=== PATIENT | male | born 1990 | race African-American/Black ===

== ENCOUNTER 2016-06-21 10:52 | Emergency (ER) | payer OTHER ==
[~2016-06-21] VITALS: Ht 188 cm; Wt 95.8 kg
[~2016-06-21 10:52] MED LIST: PEN-VEE K,VEET500 MG PO; TRAMADOL HCL50 MG PO
[2016-06-21 11:04] VITALS: BP 113/69
== END 2016-06-21 14:07 | disposition left against medical advice (07) ==
LOC: EME 10:52
DX: K08.89 Other specified disorders of teeth and supporting structures (principal); Z53.21 Procedure and treatment not carried out due to patient leaving prior to being seen by health care provider; F17.200 Nicotine dependence, unspecified, uncomplicated

== ENCOUNTER 2016-12-22 00:46 | Emergency (ER) | payer OTHER ==
[~2016-12-22] VITALS: Ht 185.4 cm; Wt 97.6 kg
[2016-12-22] MEDS ORDERED: PEN-VEE K,VEET500 MG PO (01:34)
[2016-12-22] MEDS ORDERED: ULTRAM50 MG PO (01:34)
[2016-12-22 01:41] VITALS: BP 131/82
== END 2016-12-22 01:41 | disposition home or self-care (01) ==
LOC: EME 00:46
PROC: 3E0T3BZ Introduction of Anesthetic Agent into Peripheral Nerves and Plexi, Percutaneous Approach (ICD-10-PCS; principal; 2016-12-22)
DX: K08.89 Other specified disorders of teeth and supporting structures (principal); F17.200 Nicotine dependence, unspecified, uncomplicated
CPT/HCPCS: 99281; 99283

== ENCOUNTER 2017-10-22 08:00 | Emergency (ER) | payer OTHER ==
[~2017-10-22] VITALS: Ht 188 cm; Wt 107.9 kg
[~2017-10-22 08:00] MED LIST changes: +ULTRAM50 MG PO
[2017-10-22 09:18] LABS: BASOPHIL (%) 0.3 % (0-1); EOSINOPHIL (%) 2.6 % (0-5); EOSINOPHIL COUNT 0.2 K/uL (0-0.3); HEMATOCRIT 45.6 % (38.0-50.0); HEMOGLOBIN 14.5 G/DL (12.5-16.6); IMMATURE GRANULOCYTE (%) 0.1 % (0.0-0.7); LYMPHOCYTE (%) 31.3 % (15-42); LYMPHOCYTE COUNT 2.4 K/uL (1.0-2.8); MCH 23.3 PG (29.0-34.0); MCHC 31.8 G/DL (30.0-36.0); MCV 73.2 FL (86-99); MONOCYTE (%) 8.1 % (3-12); MONOCYTE COUNT 0.6 K/uL (0-0.8); NEUTROPHIL (%) 57.6 % (45-76); NEUTROPHIL COUNT 4.5 K/uL (1.8-6.4); PLATELET COUNT 263 K/uL (156-360); RBC DIS.WIDTH-CV 14.3 % (11.8-14.6); RBC DIS.WIDTH-SD 37.2 % (39-53); RED BLOOD COUNT 6.23 M/uL (4.00-5.50); WHITE BLOOD COUNT 7.8 K/uL (4.1-10.2)
[2017-10-22 09:26] LABS: CHLORIDE 103 mEq/L (99-109); SODIUM 139 mEq/L (136-147)
[2017-10-22 09:28] LABS: GLUCOSE 100 mg/dL (70-99)
[2017-10-22 09:30] LABS: TROP-I INTERPRETATION NEGATIVE; TROPONIN-I 0.01 ng/mL (0.0-0.30)
[2017-10-22 09:32] LABS: GFR ESTIMATE (CALCULATED) > 59 mL/min/ (58.99-99999)
[2017-10-22 09:33] LABS: UREA NITROGEN (BUN) 13 mg/dL (9-23)
[2017-10-22 12:03] LABS: TROP-I INTERPRETATION NEGATIVE; TROPONIN-I < 0.01 ng/mL (0.0-0.30)
[2017-10-22] MEDS ORDERED: MOTRIN800 MG PO (12:55)
[2017-10-22 13:04] VITALS: BP 124/80
== END 2017-10-22 13:12 | disposition home or self-care (01) ==
LOC: EME 08:00
PROVIDERS: Emergency Medicine
DX: R07.89 Other chest pain (principal); F17.200 Nicotine dependence, unspecified, uncomplicated
CPT/HCPCS: 71045; 80048; 84484; 85025; 93005; 99281; 99284